=== PATIENT | female | born 1975 | race Hispanic/Latino ===

== ENCOUNTER 2019-03-24 12:49 | Inpatient (IN) | payer OTHER ==
[~2019-03-24] VITALS: Ht 165.1 cm; Wt 199.1 kg
[2019-03-24 15:43] LABS: BASOPHILS % (AUTO) 0.5 % (0.0-5.0); EOSINOPHILS % (AUTO) 0.3 % (0.0-8.0); HEMATOCRIT 30.3 % (36-48); LYMPHOCYTES % (AUTO) 10.3 % (21.0-51.0); MEAN CORPUSCULAR HEMOGLOBIN 29.9 pg (27.0-33.0); MEAN CORPUSCULAR HGB CONC 33.6 g/dL (32.0-36.0); MEAN CORPUSCULAR VOLUME 89.1 fL (79-99); MONOCYTES % (AUTO) 11.5 % (3.0-13.0); NEUTROPHILS % (AUTO) 77.4 % (40.0-77.0); NUCLEATED RED BLOOD CELLS 0.1 % (0.0-0.19); PLATELET COUNT (AUTO) 289 K/uL (130-400); RED CELL DISTRIBUTION WIDTH 15.2 % (11.0-15.5); WHITE BLOOD COUNT (AUTO) 6.4 K/uL (4.8-10.8)
[2019-03-24 15:45] LABS: ABG BASE EXCESS 3.3 mmol/L (-2.0-3.0); ABG HCO3 26.1 mmol/L (21.0-28.0); ABG OXYGEN SATURATION 98.7 % (95.0-99.0); ABG PCO2 32 mmHg (32-45)
[2019-03-24 16:13] LABS: B-TYPE NATRIURETIC PEPTIDE 22 pg/mL (0-100)
[2019-03-24] MEDS ORDERED: CLINDAMYCIN 600 MG/D5% WATER 50 ML IV ONE (16:54)
[2019-03-24] MEDS ORDERED: GUAIFENESIN-DM 200/20 MG 10 ML PO PRN (19:00)
[2019-03-24] MEDS ORDERED: LACTULOSE 20 GM/30 ML UDCUP PO PRN (19:00)
[2019-03-24] MEDS ORDERED: NITROGLYCERIN 0.4 MG SL TAB SL PRN (19:00)
[2019-03-24] MEDS ORDERED: ONDANSETRON HCL 4 MG/2 ML VIAL IV PRN (19:00)
[2019-03-24] MEDS ORDERED: ACETAMINOPHEN 325 MG TAB PO PRN ×2 (19:00)
[2019-03-24] MEDS ORDERED: POTASSIUM CHLORIDE 20 MEQ ERTAB PO SCH (20:00)
[2019-03-24 21:45] VITALS: BP 116/76
--- NOTE | 2019-03-24 21:45 | NUR ---
Admission note: Pt. came in via stretcher and was transferred in bed safely with 6 persons. Alert and fully responsive. VS checked and recorded. Assessment done. ( See flow chart ) Plan of care initiated. Seen and examined by Hospitalist. Orders carried out. Dressing at the back changed and reinforced as it was stained with her stool. Oriented to room and use of call light. Policies and procedures explained. Family and patient verbalized understanding. Kept monitored for any unusual changes. Needs attended and cared for. Reported accordingly to AM shift.
[2019-03-24] MEDS: FAMOTIDINE 20MG TAB 20 MG TAB PO SCH (21:48)
[2019-03-24] MEDS: HYDROCODONE/ACETAMINOPHEN 5/325 MG TAB PO PRN (21:49)
[2019-03-24] MEDS: SODIUM CHLORIDE 0.9% 1000ML 1,000 ML IV SCH (22:10)
[2019-03-24] MEDS: IPRATROPIUM/ALBUTEROL SULFATE 3 ML SOLUTION IH SCH (22:12)
[2019-03-25] VITALS: BP 116/57
[2019-03-25 00:12] LABS: INR 1.07 (0.85-1.15); PARTIAL THROMBOPLASTIN TIME 26.8 SEC (26.3-35.5); PROTHROMBIN TIME 11.2 SEC (9.6-11.6)
[2019-03-25 00:19] LABS: BILIRUBIN,TOTAL 0.6 mg/dL (0.2-1.0); CREATININE 0.9 mg/dL (0.5-1.5); POTASSIUM 3.1 mmol/L (3.5-5.1); TOTAL PROTEIN, SERUM 6.9 g/dL (6.0-8.3)
[2019-03-25] MEDS ORDERED: LIDOCAINE HCL-MPF 1% 2ML VIAL IVP PRN (00:45)
[2019-03-25] MEDS ORDERED: POTASSIUM CHLORIDE 10% ELIXIR 20 MEQ/15 ML UDCUP PO PRN (00:45)
[2019-03-25] MEDS ORDERED: FUROSEMIDE 10 MG/ML 4ML VIAL IV ONE (00:45)
[2019-03-25] MEDS ORDERED: FUROSEMIDE 10 MG/ML 4ML VIAL ONE (00:54)
--- NOTE | 2019-03-25 01:00 | NUR ---
Gomez Insertion: Procedure for FC insertion explained. Pt agreeable and verbalize understanding. # 18 Fr. Gomez inserted using aseptic technique, balloon inflated with 10cc SW , dark yellow colored returned. Patient tolerated the procedure well. Urine obtained for UA and Culture and sensitivity and sent to lab for MD orders. No untoward incident happened.
[2019-03-25] MEDS: IPRATROPIUM/ALBUTEROL SULFATE 3 ML SOLUTION IH SCH ×6 (01:19→21:30)
[2019-03-25 01:22] LABS: APPEARANCE,URINE Cloudy (CLEAR); BILIRUBIN,URINE Negative (NEGATIVE); COLOR,URINE Yellow (YELLOW); GLUCOSE, URINE (UA) Negative (NEGATIVE); KETONES,URINE Negative (NEGATIVE); LEUKOCYTE ESTERASE ,URINE Trace (NEGATIVE); NITRATE,URINE Negative (NEGATIVE); OCCULT BLOOD,URINE Small (NEGATIVE); PH,URINE 5.5 (5.0-8.0); PROTEIN,URINE POS 1+ mg/dL (NEGATIVE); UROBILINOGEN,URINE 0.2 mg/dL (0.2-1.0)
[2019-03-25 01:31] LABS: BACTERIA,URINE None Seen /HPF (None Seen); CALCIUM OXALATE CRYSTALS,UR Moderate /LPF (None Seen); SQUAMOUS EPITHELIAL CELL,UR Few /HPF (0-2); YEAST,URINE BUDDING Few /HPF (None Seen)
[2019-03-25] MEDS ORDERED: LEVOFLOXACIN 750 MG/D5W 150 ML 150 ML ONE (03:10)
[2019-03-25 04:00] VITALS: BP 103/59
[2019-03-25 04:52] LABS: BASOPHILS % (AUTO) 0.3 % (0.0-5.0); EOSINOPHILS % (AUTO) 0.9 % (0.0-8.0); HEMATOCRIT 26.4 % (36-48); LYMPHOCYTES % (AUTO) 14.3 % (21.0-51.0); MEAN CORPUSCULAR HEMOGLOBIN 29.6 pg (27.0-33.0); MEAN CORPUSCULAR VOLUME 89.6 fL (79-99); MONOCYTES % (AUTO) 11.4 % (3.0-13.0); NEUTROPHILS % (AUTO) 73.1 % (40.0-77.0); PLATELET COUNT (AUTO) 275 K/uL (130-400); RED BLOOD CELL COUNT(AUTO) 2.94 MIL/uL (4.00-5.50); RED CELL DISTRIBUTION WIDTH 15.2 % (11.0-15.5)
[2019-03-25] MEDS: SODIUM CHLORIDE 0.9% 1000ML 1,000 ML IV SCH ×3 (05:00→21:13)
[2019-03-25 05:10] LABS: POTASSIUM 3.2 mmol/L (3.5-5.1)
[2019-03-25 05:11] LABS: ALBUMIN 1.9 g/dL (3.5-5.0); BILIRUBIN,TOTAL 0.5 mg/dL (0.2-1.0); CREATININE 0.9 mg/dL (0.5-1.5); MAGNESIUM 1.8 mg/dL (1.80-2.40); TOTAL PROTEIN, SERUM 6.5 g/dL (6.0-8.3)
[2019-03-25] MEDS ORDERED: SODIUM HYPOCHLORITE 0.25% [HALF STRENGTH] 473 ML TOPICAL SOLN TP SCH (06:15)
[2019-03-25 08:00] VITALS: BP 110/58
[2019-03-25] MEDS ORDERED: PHARMACY COMMUNICATION MISC SCH (08:00)
[2019-03-25] MEDS: ENOXAPARIN SODIUM 40 MG/0.4 ML SYRINGE SQ SCH (08:50)
[2019-03-25] MEDS: FAMOTIDINE 20MG TAB 20 MG TAB PO SCH ×2 (08:50→21:12)
[2019-03-25] MEDS: HYDROCODONE/ACETAMINOPHEN 5/325 MG TAB PO PRN ×2 (08:51→23:54)
[2019-03-25] MEDS ORDERED: LEVOFLOXACIN 750 MG/D5W 150 ML 150 ML IV SCH (09:00)
[2019-03-25 12:00] VITALS: BP 91/54
[2019-03-25 16:00] VITALS: BP 104/54
--- NOTE | 2019-03-25 16:41 | NUR ---
D/C PLAN CM spoke to pt regarding d/c planning. Pt lives with spouse. States spouse and mother assist in care as needed. Pt has hospital bed, w/c, bsc, and leticia lift. States she attends o/p wound care with Dr. Siegel. Reports MD has recommended pt transfer to [facility] at d/c. CM explained that placement requires insurance authorization. CM obtained consent for referral. CM pending d/c planning order. CM to fax referral once obtained and f/u. Addendum: 03/25/19 at 1704 by GREGORY SONG Amended: Links added.
--- NOTE | 2019-03-25 17:07 | NUR ---
JULIO castillo extra note 03/25/19 1) Hx: Pt said that she has been non-ambulatory since approx Nov 2018 (admitted to hospital with pneumonia; "seated" for approx 1.5 months). 2) Prior to hospital admission Nov 2018, Pt said she was ambulatory. 3) Prior to current hospitalization ,pt said her family have been assisting patient with transfers, using a Lift (manual Paul-type lift). 4). Observation: (+) wound/open skin area at L lower leg. (+) hardened skin at L lower leg. 5) (+) pitting edema L lower leg. 6) Transfer and gait tests NT today, due to obesity + signficant weakness + wounds + pain + level of dependence with bed mobility. Addendum: 03/25/19 at 1712 by JOYCE ESCOTO PT Amended: Links added.
--- NOTE | 2019-03-25 17:14 | NUR ---
PT Rx extra note 03/25/19 1) Exercises: a) assisted abdominal crunches x 20 reps; b) manual resistance ex BUE; c) passive ex BLE; 4) active-assistive ex BLE. Addendum: 03/25/19 at 1715 by JOYCE ESCOTO PT Amended: Links added.
--- NOTE | 2019-03-25 19:00 | NUR ---
wc pt educated on the wound care to the lower extremities. cleansed with NS, pat dry. Betadine cast applied and covered with 4x4, then kerlix the extremities. pt tolerated procedure well. denies any pain to area. will endorse the continuation of wound care to the evening shift
[2019-03-25 19:42] VITALS: BP 105/61
[2019-03-26] VITALS (8 sets, daily range): BP systolic 80–112; BP diastolic 44–67
[2019-03-26] MEDS: IPRATROPIUM/ALBUTEROL SULFATE 3 ML SOLUTION IH SCH ×6 (01:05→22:02)
[2019-03-26] MEDS: LEVOFLOXACIN 750 MG/D5W 150 ML 150 ML IV SCH ×2 (02:53→09:47)
[2019-03-26] MEDS: SODIUM CHLORIDE 0.9% 1000ML 1,000 ML IV SCH ×4 (03:33→20:29)
[2019-03-26] MEDS: HYDROCODONE/ACETAMINOPHEN 5/325 MG TAB PO PRN ×3 (04:31→20:30)
--- NOTE | 2019-03-26 04:47 | NUR ---
Dressing change Dressing to right buttocks done at this time. Removed old dressing which had moderate amount of serosanguinous drainage, cleansed with NS, packed wound with kerlix impregnated with dakins solution and covered with abdominal pads. Dressing to mid back done removed old dressing and packing that was in place. Cleansed site with NS and packed with 1/4 inch strip gauze impregnated with dakins solution. Wound to right buttocks noted to have foul odor. Patient tolerated dressing changes well.
[2019-03-26 06:23] LABS: CREATININE 0.8 mg/dL (0.5-1.5); MAGNESIUM 1.7 mg/dL (1.80-2.40); PHOSPHORUS 1.9 mg/dL (2.5-4.9); POTASSIUM 3.2 mmol/L (3.5-5.1)
[2019-03-26 06:27] LABS: % IRON SATURATION 37.5 % (22-44)
--- NOTE | 2019-03-26 06:38 | NUR ---
Critical Calcium Received call from lab regarding Calcium of 12.3, AJ BUFFING WHEEL PRESSER for hospitalist on floor and was informed of result.
[2019-03-26] MEDS: FAMOTIDINE 20MG TAB 20 MG TAB PO SCH ×2 (09:46→20:30)
[2019-03-26] MEDS: ENOXAPARIN SODIUM 40 MG/0.4 ML SYRINGE SQ SCH (09:47)
[2019-03-26] MEDS ORDERED: POTASSIUM PHOS 15 mMOL+NS250ML 250 ML IV PRN (13:15)
[2019-03-26] MEDS ORDERED: MAGNESIUM SULFATE 1 GM in SODIUM CHLORIDE 0.9% 50 ML IV PRN (13:15)
--- NOTE | 2019-03-26 16:00 | NUR ---
DRESSING TO RIGHT BUTTOCKS CLEANED WITH NORMAL SALINE AND PACKED WOUND WITH IMPREGNATED WITH DAKINS SOLUTION, COVERED WITH ABD AND SECURED WITH TAPE. PATIENT TOLERATED PROCEDURE WELL. CLEANED BILATERAL HEELS WITH NORMAL SALINE AND APPLIED BETADINE CAST. COVERED WITH KERLIX AND SECURED WITH TAPE. CLEANED ABD. FOLDS WITH NORMAL SALINE AND DRIED WITH 4X4 . PRISM NOT AVAILABLE
[2019-03-26] MEDS ORDERED: LACT1CAP69 PO (16:43)
[2019-03-26] MEDS ORDERED: ASPI-555 PO (16:43)
[2019-03-26] MEDS ORDERED: FAMO20TA8 PO (16:43)
[2019-03-26] MEDS ORDERED: POTA10CA44 PO (16:43)
[2019-03-26] MEDS ORDERED: FURO40TA5 PO (16:43)
[2019-03-26] MEDS: MAGNESIUM 2GM PREMIX 50ML 50 ML IV PRN (17:12)
--- NOTE | 2019-03-26 17:43 | NUR ---
PT extra note 03/26/19: Exercises: a) resistive ex to B hip abductors; b) "leg stomping", with manual resistance; c) assisted "abs crunch", 20 reps; d) sitting balance/tolerance ( long-sitting posture, feet on bed). Addendum: 03/26/19 at 1745 by JOYCE ESCOTO PT Amended: Links added.
--- NOTE | 2019-03-26 20:30 | NUR ---
PAIN Pt medicated with Hydrocodone for pain to ulcer to buttock.Dressing was changed per Juan Coleman.
--- NOTE | 2019-03-26 21:30 | NUR ---
MED EFFECT Pt denies pain,resting on bariatric bed.
[2019-03-27] VITALS (7 sets, daily range): BP systolic 86–107; BP diastolic 48–99
[2019-03-27] MEDS: IPRATROPIUM/ALBUTEROL SULFATE 3 ML SOLUTION IH SCH ×5 (02:34→23:47)
[2019-03-27] MEDS: HYDROCODONE/ACETAMINOPHEN 5/325 MG TAB PO PRN ×2 (05:34→19:51)
[2019-03-27] MEDS: SODIUM CHLORIDE 0.9% 1000ML 1,000 ML IV SCH ×3 (05:38→19:51)
[2019-03-27 05:41] LABS: HEMATOCRIT 26.6 % (36-48); LYMPHOCYTES % (AUTO) 10.5 % (21.0-51.0); MEAN CORPUSCULAR HEMOGLOBIN 29.9 pg (27.0-33.0); MEAN CORPUSCULAR HGB CONC 33.1 g/dL (32.0-36.0); MEAN CORPUSCULAR VOLUME 90.6 fL (79-99); MONOCYTES % (AUTO) 10.4 % (3.0-13.0); PLATELET COUNT (AUTO) 260 K/uL (130-400); RED BLOOD CELL COUNT(AUTO) 2.93 MIL/uL (4.00-5.50); RED CELL DISTRIBUTION WIDTH 15.5 % (11.0-15.5); WHITE BLOOD COUNT (AUTO) 7.4 K/uL (4.8-10.8)
[2019-03-27 05:42] LABS: BASOPHILS % (AUTO) 0.2 % (0.0-5.0); EOSINOPHILS % (AUTO) 0.9 % (0.0-8.0)
[2019-03-27 05:59] LABS: CREATININE 0.8 mg/dL (0.5-1.5); MAGNESIUM 1.9 mg/dL (1.80-2.40); POTASSIUM 3.3 mmol/L (3.5-5.1)
[2019-03-27] MEDS: POTASSIUM CHLORIDE 20 MEQ ERTAB PO PRN ×3 (06:31→17:42)
[2019-03-27 08:31] LABS: INR 1.03 (0.85-1.15); PROTHROMBIN TIME 10.8 SEC (9.6-11.6)
[2019-03-27] MEDS: LEVOFLOXACIN 750 MG/D5W 150 ML 150 ML IV SCH (09:55)
[2019-03-27] MEDS: FAMOTIDINE 20MG TAB 20 MG TAB PO SCH ×2 (09:56→19:50)
--- NOTE | 2019-03-27 14:25 | NUR ---
[facility] follow up Accompanied Dr. Jimmy Siegel to follow up on patient. All wounds re-assessed by Dr. Siegel. Surgical consult has been recommended for debridement of right buttock ulcer; ideally wound vac to be placed at time of surgical debridement. Wound care performed as ordered to all sites except abdomen (to be done tomorrow) and right lower leg (to be done when medihoney obtained). Patient is on bariatric air bed.
[2019-03-27] MEDS ORDERED: HONEY 1 APPL/ML TUBE TP SCH (14:30)
--- NOTE | 2019-03-27 16:19 | NUR ---
RD Notification Pt with multiple decubitus ulcers (Bilateral Heel DTI, R. Buttock, Mid-Lower back), Morbid Obesity (BMI 68.6). Pt reports Nausea with eating certain foods, poor PO. RN notified. RD to add tolerable foods to dietary. Does not tolerate Ensure shake. RD to recommend Sean BID/Vitamin C/Zinc/30mL ProMod TID for wound healing support and poor PO. 2+ Pitting edema noted. RD to continue to monitor. Please notify RD as additional nutrition concerns arise. Thank you. Addendum: 03/27/19 at [address] Amended: Links added.
[2019-03-27] MEDS: ENOXAPARIN SODIUM 40 MG/0.4 ML SYRINGE SQ SCH (17:43)
[2019-03-28] VITALS (27 sets, daily range): BP systolic 68–148; BP diastolic 16–79
--- NOTE | 2019-03-28 03:17 | NUR ---
NPO Pt remains Npo after midnight for wound debridement in Or.Pt remains on bariatric air bed for wound management.Gomez care per staff.Picc line to left upper arm both ports patent flushing well,brisk blood return.
[2019-03-28] MEDS: SODIUM CHLORIDE 0.9% 1000ML 1,000 ML IV SCH ×3 (04:49→18:17)
--- NOTE | 2019-03-28 05:00 | NUR ---
BATH Pt bathed with Chg wipes per staff.
[2019-03-28] MEDS: HYDROCODONE/ACETAMINOPHEN 5/325 MG TAB PO PRN (05:17)
[2019-03-28 05:20] LABS: BASOPHILS % (AUTO) 0.2 % (0.0-5.0); EOSINOPHILS % (AUTO) 0.6 % (0.0-8.0); HEMATOCRIT 26.5 % (36-48); LYMPHOCYTES % (AUTO) 10.5 % (21.0-51.0); MEAN CORPUSCULAR HEMOGLOBIN 30.1 pg (27.0-33.0); MEAN CORPUSCULAR HGB CONC 33.1 g/dL (32.0-36.0); MEAN CORPUSCULAR VOLUME 90.9 fL (79-99); MONOCYTES % (AUTO) 10.1 % (3.0-13.0); NEUTROPHILS % (AUTO) 78.6 % (40.0-77.0); PLATELET COUNT (AUTO) 203 K/uL (130-400); RED BLOOD CELL COUNT(AUTO) 2.91 MIL/uL (4.00-5.50); RED CELL DISTRIBUTION WIDTH 15.3 % (11.0-15.5); WHITE BLOOD COUNT (AUTO) 7.4 K/uL (4.8-10.8)
[2019-03-28 05:33] LABS: CREATININE 0.8 mg/dL (0.5-1.5); POTASSIUM 3.8 mmol/L (3.5-5.1)
[2019-03-28] MEDS: IPRATROPIUM/ALBUTEROL SULFATE 3 ML SOLUTION IH SCH ×4 (06:44→23:43)
[2019-03-28] MEDS: FAMOTIDINE 20MG TAB 20 MG TAB PO SCH ×2 (09:00→21:00)
[2019-03-28] MEDS: CINACALCET HCL 30 MG TAB PO SCH (09:00)
[2019-03-28] MEDS: ENOXAPARIN SODIUM 40 MG/0.4 ML SYRINGE SQ SCH (09:00)
[2019-03-28] MEDS: LEVOFLOXACIN 750 MG/D5W 150 ML 150 ML IV SCH (09:15)
--- NOTE | 2019-03-28 11:45 | NUR ---
CM note: Wadea pending ins auth and acceptance Spoke to Robyn Schmitt, received order and clinicals. Will come eval pt today. Pt pending ins auth and acceptance. Primary nurse aware. CM to cont to follow up.
--- NOTE | 2019-03-28 14:20 | NUR ---
PATIENT TRANSFERRED TO HOLDING AREA FOR PROCEDURE BY DR. LEIVA. PATIENT SCHEDULED FOR DECUBITUS ULCER DEBRIDEMENT WITH POSSIBLE WOUND VAC PLACEMENT.
[2019-03-28] MEDS ORDERED: FENTANYL CITRATE PF 50 MCG/1 ML 2ML VIAL ONE (14:44)
[2019-03-28] MEDS ORDERED: LIDOCAINE PF 2% 5ML ABBOJECT ONE (14:44)
[2019-03-28] MEDS ORDERED: MIDAZOLAM HCL 1 MG/ML 2ML VIAL ONE (14:44)
[2019-03-28] MEDS ORDERED: PROPOFOL 10 MG/ML 20ML VIAL IV ONE (14:44)
[2019-03-28] MEDS ORDERED: ONDANSETRON HCL 4 MG/2 ML VIAL ONE (14:44)
[2019-03-28] MEDS ORDERED: DEXAMETHASONE SOD PHOSPHATE 10MG/ML 1ML VIAL ONE (14:44)
[2019-03-28] MEDS ORDERED: EPHEDRINE SULFATE 50 MG/ML AMPULE ONE ×2 (15:24→16:42)
[2019-03-28] MEDS ORDERED: ROCURONIUM 10MG/1ML SYR 10 MG/ML ML ONE (16:02)
[2019-03-28 16:58] LABS: ABG BASE EXCESS -4.6 mmol/L (-2.0-3.0); ABG OXYGEN SATURATION 99.4 % (95.0-99.0); ABG PCO2 55 mmHg (32-45)
[2019-03-28] MEDS ORDERED: MORPHINE SULFATE 4 MG/1ML SYG IV PRN (17:00)
[2019-03-28] MEDS ORDERED: PROPOFOL 1000 MG/100 ML 100 ML IV ONE (17:36)
[2019-03-28] MEDS ORDERED: PHENYLEPHRINE HCL 10 MG/ML 1ML VIAL IV ONE (17:45)
[2019-03-28] MEDS: PHENYLEPHRINE HCL 50 MG in SODIUM CHLORIDE 0.9% 250 ML IV PRN ×2 (18:14→23:22)
[2019-03-28 18:25] LABS: ABG BASE EXCESS -4.1 mmol/L (-2.0-3.0); ABG HCO3 19.8 mmol/L (21.0-28.0); ABG OXYGEN SATURATION 99.5 % (95.0-99.0); ABG PCO2 33 mmHg (32-45)
--- NOTE | 2019-03-28 18:35 | NUR ---
REPORT GIVEN TO JAMES WELLER (CCU). PATIENT TRANSFERRED FROM PACU TO ROOM 219.
[2019-03-28] MEDS ORDERED: FAMOTIDINE/PF 20 MG/2 ML VIAL IV SCH (21:00)
[2019-03-28] MEDS: PROPOFOL 1000 MG/100 ML 100 ML IV PRN (21:13)
--- NOTE | 2019-03-28 22:25 | NUR ---
STATUS ANESTHESIA PROVIDER CALLED TO CHECK UP ON PATIENT. UPDATED ON PATIENT CONDITION. NO NEW ORDERS RECEIVED. VERIFIED THAT PULMONARY CONSULT WAS NOT CONSULTED FOR PATIENT. Addendum: 03/29/19 at 0155 by JAN MORRIS RN RN OFFICE WORKFORCE PLANNER
[2019-03-29] VITALS (45 sets, daily range): BP systolic 94–162; BP diastolic 31–107
[2019-03-29] MEDS: SODIUM CHLORIDE 0.9% 1000ML 1,000 ML IV SCH ×5 (01:11→22:00)
[2019-03-29] MEDS: PROPOFOL 1000 MG/100 ML 100 ML IV PRN ×3 (01:37→05:52)
--- NOTE | 2019-03-29 01:55 | NUR ---
WOUND VAC WOUND VAC CANISTER CHANGED
[2019-03-29 04:28] LABS: CREATININE 0.7 mg/dL (0.5-1.5); POTASSIUM 3.9 mmol/L (3.5-5.1)
[2019-03-29 04:32] LABS: PHOSPHORUS 1.1 mg/dL (2.5-4.9)
[2019-03-29] MEDS: PHENYLEPHRINE HCL 50 MG in SODIUM CHLORIDE 0.9% 250 ML IV PRN (05:53)
[2019-03-29] MEDS: IPRATROPIUM/ALBUTEROL SULFATE 3 ML SOLUTION IH SCH ×4 (06:22→23:11)
[2019-03-29 07:52] LABS: ABG BASE EXCESS -4.7 mmol/L (-2.0-3.0); ABG HCO3 18.9 mmol/L (21.0-28.0); ABG OXYGEN SATURATION 98.9 % (95.0-99.0); ABG PCO2 31 mmHg (32-45)
[2019-03-29] MEDS: FAMOTIDINE/PF 20 MG/2 ML VIAL IV SCH ×2 (08:38→22:00)
[2019-03-29] MEDS: LEVOFLOXACIN 750 MG/D5W 150 ML 150 ML IV SCH (08:38)
[2019-03-29] MEDS: ENOXAPARIN SODIUM 40 MG/0.4 ML SYRINGE SQ SCH (08:39)
[2019-03-29] MEDS: CINACALCET HCL 30 MG TAB PO SCH (08:39)
[2019-03-29] MEDS ORDERED: NEUTRA-PHOS PACKET 1 EACH PO SCH (09:15)
[2019-03-29] MEDS: HYDROCODONE/ACETAMINOPHEN 5/325 MG TAB PO PRN ×2 (12:11→22:01)
--- NOTE | 2019-03-29 15:00 | NUR ---
ASSESSED PTS LAUREL 5 ITALIAN 2 LUMEN PICC LINE, NOTICED UPON ASSESSED 2CM OUT AND PICC LINE BEING KINKED. STRAIGHTENED LINE. PER PREVIOUS DOCUMENTATION 0 CM OUT. DID STERIL DRESSING CHANGE AND FLUSHED WITHOUT DIFFICULTY. REPORTED FINDING TO VERN RN PT PRIMARY NURSE. SUGGESTED FOR HER TO CALL PRIMARY MD TO SEE IF HE WANTS AN CHEST XRAY TO VERIFY PLACEMENT. CHEST XRAY ORDERED.
[2019-03-29] MEDS ORDERED: HYDROMORPHONE 4MG/ML 1ML VIAL IVP PRN (15:45)
[2019-03-29] MEDS: HEPARIN SODIUM 5000UNIT/ML 1ML VIAL SQ SCH (15:45)
[2019-03-29] MEDS: NEUTRA-PHOS PACKET 1 EACH PO SCH (22:03)
[2019-03-30] VITALS (26 sets, daily range): BP systolic 67–138; BP diastolic 40–73
[2019-03-30] MEDS: HEPARIN SODIUM 5000UNIT/ML 1ML VIAL SQ SCH ×2 (00:46→09:22)
[2019-03-30 05:05] LABS: HEMATOCRIT 23.8 % (36-48); MEAN CORPUSCULAR HEMOGLOBIN 30.5 pg (27.0-33.0); MEAN CORPUSCULAR HGB CONC 33.3 g/dL (32.0-36.0); MEAN CORPUSCULAR VOLUME 91.6 fL (79-99); PLATELET COUNT (AUTO) 128 K/uL (130-400); RED CELL DISTRIBUTION WIDTH 15.8 % (11.0-15.5); WHITE BLOOD COUNT (AUTO) 9.7 K/uL (4.8-10.8)
[2019-03-30 05:19] LABS: INR 1.09 (0.85-1.15); PARTIAL THROMBOPLASTIN TIME 27.8 SEC (26.3-35.5); PROTHROMBIN TIME 11.4 SEC (9.6-11.6)
[2019-03-30 05:42] LABS: ALANINE AMINOTRANSFERASE 11 U/L (12-78); ALBUMIN 1.3 g/dL (3.5-5.0); ASPARTATE AMINOTRANSFERASE 14 U/L (10-37); BILIRUBIN,TOTAL 0.3 mg/dL (0.2-1.0); CARBON DIOXIDE 19 mmol/L (21-32); CHLORIDE 110 mmol/L (101-111); CREATINE KINASE, TOTAL 17 U/L (21-232); CREATININE 0.7 mg/dL (0.5-1.5); GLOMERULAR FILTR. RATE CALC 98 mL/min (>60); GLUCOSE,RANDOM 85 mg/dL (70-105); MYOGLOBIN 32 ng/mL (10-92); PHOSPHORUS 2.1 mg/dL (2.5-4.9); POTASSIUM 4.1 mmol/L (3.5-5.1); SODIUM SERUM 138 mmol/L (136-145); TROPONIN I < 0.04 ng/mL (0.00-0.06); UREA NITROGEN, BLOOD 19 mg/dL (7-18)
[2019-03-30 05:45] LABS: ABG BASE EXCESS -5.4 mmol/L (-2.0-3.0); ABG OXYGEN SATURATION 98.2 % (95.0-99.0); ABG PCO2 39 mmHg (32-45)
[2019-03-30] MEDS: SODIUM CHLORIDE 0.9% 1000ML 1,000 ML IV SCH (05:46)
[2019-03-30] MEDS: HYDROCODONE/ACETAMINOPHEN 5/325 MG TAB PO PRN (05:46)
[2019-03-30] MEDS: IPRATROPIUM/ALBUTEROL SULFATE 3 ML SOLUTION IH SCH ×4 (06:47→23:57)
[2019-03-30] MEDS: MAGNESIUM 2GM PREMIX 50ML 50 ML IV PRN (06:51)
[2019-03-30] MEDS: LEVOFLOXACIN 750 MG/D5W 150 ML 150 ML IV SCH (09:13)
[2019-03-30] MEDS: FAMOTIDINE/PF 20 MG/2 ML VIAL IV SCH ×2 (09:15→20:33)
[2019-03-30] MEDS: NEUTRA-PHOS PACKET 1 EACH PO SCH ×2 (09:19→20:48)
[2019-03-30] MEDS: CINACALCET HCL 30 MG TAB PO SCH (09:19)
--- NOTE | 2019-03-30 09:25 | NUR ---
Patient's mother came out of room and requested for assistance. The patient was found with an active seizure manifested with bilateral facial twitching. Dr. Molina in to see patient. Rapid response was called. Patient placed on BiPAP. Given ativan 2 mg iv given. Patient with hypotension post ativan dose. NS 1 liter bolus ordered by Dr. Molina.
[2019-03-30] MEDS ORDERED: LORAZEPAM 2 MG/ML 1 ML VIAL ONE (09:29)
[2019-03-30] MEDS ORDERED: PHENYTOIN SODIUM 50MG/ML 2ML 0 MG in SODIUM CHLORIDE 0.9% 50 ML IV SCH (09:30)
[2019-03-30] MEDS ORDERED: LORAZEPAM 2 MG/ML 1 ML VIAL IM PRN (09:30)
[2019-03-30] MEDS ORDERED: LORAZEPAM 2 MG/ML 1 ML VIAL IVP ONE (09:30)
[2019-03-30 09:35] LABS: ABG OXYGEN SATURATION 97.6 % (95.0-99.0); ABG PCO2 56 mmHg (32-45)
[2019-03-30] MEDS ORDERED: SODIUM CHLORIDE 0.9% 1000ML 1,000 ML IV ONE (09:45)
[2019-03-30 10:24] LABS: ABG HCO3 19.2 mmol/L (21.0-28.0); ABG OXYGEN SATURATION 98.9 % (95.0-99.0); ABG PCO2 41 mmHg (32-45)
[2019-03-30] MEDS ORDERED: FOSPHENYTOIN SODIUM 100 MG/2 ML VIAL IV SCH (10:30)
[2019-03-30 10:40] LABS: BASOPHILS % (AUTO) 0.2 % (0.0-5.0); EOSINOPHILS % (AUTO) 0.8 % (0.0-8.0); HEMATOCRIT 23.5 % (36-48); LYMPHOCYTES % (AUTO) 9.7 % (21.0-51.0); MEAN CORPUSCULAR HEMOGLOBIN 30.2 pg (27.0-33.0); MEAN CORPUSCULAR HGB CONC 32.9 g/dL (32.0-36.0); MEAN CORPUSCULAR VOLUME 91.9 fL (79-99); MONOCYTES % (AUTO) 5.8 % (3.0-13.0); NEUTROPHILS % (AUTO) 83.5 % (40.0-77.0); NUCLEATED RED BLOOD CELLS 0.1 % (0.0-0.19); PLATELET COUNT (AUTO) 117 K/uL (130-400); RED BLOOD CELL COUNT(AUTO) 2.56 MIL/uL (4.00-5.50); RED CELL DISTRIBUTION WIDTH 15.9 % (11.0-15.5); WHITE BLOOD COUNT (AUTO) 8.8 K/uL (4.8-10.8)
[2019-03-30] MEDS ORDERED: FOSPHENYTOIN SODIUM 1,000 MG in SODIUM CHLORIDE 0.9% 50 ML IJ SCH (10:45)
[2019-03-30] MEDS ORDERED: COMPOUND IV MISC 1 EACH IVSOLN MISC PRN (10:45)
--- NOTE | 2019-03-30 11:07 | NUR ---
10:50- PER JAMES CALI - to disregard Physical therapy order today due to seizure this AM. Addendum: 03/30/19 at 1109 by POONAM CASPER, PT PT Amended: Links added.
[2019-03-30 11:08] LABS: ALANINE AMINOTRANSFERASE 15 U/L (12-78); ALBUMIN 1.4 g/dL (3.5-5.0); ASPARTATE AMINOTRANSFERASE 13 U/L (10-37); BILIRUBIN,TOTAL 0.4 mg/dL (0.2-1.0); CARBON DIOXIDE 22 mmol/L (21-32); CHLORIDE 107 mmol/L (101-111); CREATINE KINASE, TOTAL 13 U/L (21-232); CREATININE 0.8 mg/dL (0.5-1.5); GLOMERULAR FILTR. RATE CALC 84 mL/min (>60); GLUCOSE,RANDOM 82 mg/dL (70-105); MYOGLOBIN 46 ng/mL (10-92); PHOSPHORUS 2.3 mg/dL (2.5-4.9); POTASSIUM 3.4 mmol/L (3.5-5.1); SODIUM SERUM 137 mmol/L (136-145); TOTAL PROTEIN, SERUM 5.2 g/dL (6.0-8.3); TROPONIN I < 0.04 ng/mL (0.00-0.06); UREA NITROGEN, BLOOD 19 mg/dL (7-18)
--- NOTE | 2019-03-30 11:49 | NUR ---
Dr. Maher in to see patient. Spoke to family regarding bleed in left occipital parietl asf Addendum: 03/30/19 at 1152 by VIRAJ MIMS RN RN Dr. Maher in to see patient. Spoke to family regarding bleed in left occipital parietal region. Dr. Maher spoke with Dr. Uli Molina and Henrique Vora [facility]. Awaiting official report.
[2019-03-30] MEDS: LEVETIRACETAM 1,000 MG in SODIUM CHLORIDE 0.9% 100 ML IV SCH ×2 (12:56→20:35)
[2019-03-30] MEDS ORDERED: VANCOMYCIN PROTOCOL PER PHARMACY IV SCH (13:15)
[2019-03-30] MEDS ORDERED: COMPOUND IV REFRIGERATED 1 EACH IVSOLN MISC PRN (13:30)
[2019-03-30] MEDS: POTASSIUM CHLORIDE 20MEQ/100ML 100 ML IV PRN (13:43)
[2019-03-30] MEDS: FUROSEMIDE 10 MG/ML 2ML VIAL IV SCH ×2 (13:43→20:34)
[2019-03-30] MEDS ORDERED: LEVETIRACETAM 1,000 MG in SODIUM CHLORIDE 0.9% 100 ML IV SCH (14:00)
--- NOTE | 2019-03-30 14:03 | NUR ---
Dr. Granados notified that MRI of brain unable to be done due to patient unable to fit in scanner. CT scan of brain ordered for am. Dr. Dukes paged to notify.
[2019-03-30] MEDS: VANCOMYCIN 2 GM in SODIUM CHLORIDE 0.9% 500ML 500 ML IV SCH ×2 (15:06→20:48)
[2019-03-30] MEDS: CEFTAZIDIME PENTAHYDRATE 1 GM/VIAL IVP SCH (20:34)
[2019-03-30] MEDS: FOSPHENYTOIN SODIUM 100 MG/2 ML VIAL IV SCH (20:46)
[2019-03-31] VITALS (34 sets, daily range): BP systolic 90–130; BP diastolic 42–76
[2019-03-31] MEDS: CEFTAZIDIME PENTAHYDRATE 1 GM/VIAL IVP SCH ×3 (03:49→19:26)
[2019-03-31] MEDS: LEVETIRACETAM 1,000 MG in SODIUM CHLORIDE 0.9% 100 ML IV SCH ×3 (03:49→18:30)
[2019-03-31] MEDS: FOSPHENYTOIN SODIUM 100 MG/2 ML VIAL IV SCH ×3 (03:49→19:26)
[2019-03-31 04:16] LABS: BASOPHILS % (AUTO) 0.4 % (0.0-5.0); EOSINOPHILS % (AUTO) 1.1 % (0.0-8.0); HEMATOCRIT 23.3 % (36-48); LYMPHOCYTES % (AUTO) 8.2 % (21.0-51.0); MEAN CORPUSCULAR HEMOGLOBIN 29.1 pg (27.0-33.0); MEAN CORPUSCULAR VOLUME 91.1 fL (79-99); MONOCYTES % (AUTO) 4.8 % (3.0-13.0); NEUTROPHILS % (AUTO) 85.5 % (40.0-77.0); NUCLEATED RED BLOOD CELLS 0.1 % (0.0-0.19); PLATELET COUNT (AUTO) 143 K/uL (130-400); RED BLOOD CELL COUNT(AUTO) 2.56 MIL/uL (4.00-5.50); WHITE BLOOD COUNT (AUTO) 11.3 K/uL (4.8-10.8)
[2019-03-31] MEDS: FUROSEMIDE 10 MG/ML 2ML VIAL IV SCH ×3 (04:24→19:55)
[2019-03-31 04:45] LABS: CREATININE 0.7 mg/dL (0.5-1.5); MAGNESIUM 1.9 mg/dL (1.80-2.40); PHOSPHORUS 2.5 mg/dL (2.5-4.9); POTASSIUM 3.8 mmol/L (3.5-5.1)
[2019-03-31] MEDS: IPRATROPIUM/ALBUTEROL SULFATE 3 ML SOLUTION IH SCH ×4 (06:29→23:21)
[2019-03-31 07:57] LABS: ABG BASE EXCESS -6.7 mmol/L (-2.0-3.0); ABG OXYGEN SATURATION 97.5 % (95.0-99.0); ABG PCO2 34 mmHg (32-45)
[2019-03-31] MEDS: LEVOFLOXACIN 750 MG/D5W 150 ML 150 ML IV SCH (09:24)
[2019-03-31] MEDS: NEUTRA-PHOS PACKET 1 EACH PO SCH ×2 (09:25→19:52)
[2019-03-31] MEDS: FAMOTIDINE/PF 20 MG/2 ML VIAL IV SCH ×2 (09:25→19:52)
[2019-03-31] MEDS: CINACALCET HCL 30 MG TAB PO SCH (09:25)
[2019-03-31] MEDS: HYDROCODONE/ACETAMINOPHEN 5/325 MG TAB PO PRN (09:53)
[2019-03-31] MEDS: VANCOMYCIN 2 GM in SODIUM CHLORIDE 0.9% 500ML 500 ML IV SCH ×2 (09:53→19:52)
[2019-03-31] MEDS ORDERED: IOHEXOL-350 75 ML VIAL IV ONE (10:46)
--- NOTE | 2019-03-31 11:34 | NUR ---
10:45 PATIENT IS OUT OF THE ROOM FOR PROCEDURE. Addendum: 03/31/19 at 1135 by POONAM CASPER, PT PT Amended: Links added.
--- NOTE | 2019-03-31 16:56 | NUR ---
APPLIED NEW LINEN. PERFORMED WOUND CARE DRESSING CHANGE. APPLIED BILAT BETADINE CASTS ON HEELS, PACKED BACK WOUND.
[2019-04-01] VITALS (20 sets, daily range): BP systolic 89–136; BP diastolic 42–81
[2019-04-01] MEDS: FOSPHENYTOIN SODIUM 100 MG/2 ML VIAL IV SCH ×3 (02:05→19:38)
[2019-04-01] MEDS: LEVETIRACETAM 1,000 MG in SODIUM CHLORIDE 0.9% 100 ML IV SCH ×3 (02:07→19:38)
[2019-04-01] MEDS: CEFTAZIDIME PENTAHYDRATE 1 GM/VIAL IVP SCH ×3 (05:32→20:16)
[2019-04-01] MEDS: FUROSEMIDE 10 MG/ML 2ML VIAL IV SCH ×3 (05:32→20:21)
[2019-04-01] MEDS: IPRATROPIUM/ALBUTEROL SULFATE 3 ML SOLUTION IH SCH ×4 (06:50→23:38)
[2019-04-01] MEDS: FAMOTIDINE/PF 20 MG/2 ML VIAL IV SCH ×2 (09:03→20:21)
[2019-04-01] MEDS: LEVOFLOXACIN 750 MG/D5W 150 ML 150 ML IV SCH (09:03)
[2019-04-01] MEDS: CINACALCET HCL 30 MG TAB PO SCH (09:03)
[2019-04-01] MEDS: NEUTRA-PHOS PACKET 1 EACH PO SCH ×2 (09:06→20:22)
[2019-04-01] MEDS: HYDROCODONE/ACETAMINOPHEN 5/325 MG TAB PO PRN ×2 (09:13→14:12)
[2019-04-01] MEDS ORDERED: ALTEPLASE 2 MG/2 ML IVCATH SCH (10:15)
--- NOTE | 2019-04-01 21:00 | NUR ---
PT TRANSFERRED FROM ICU TO PCCU. AT BEDSIDE. NO DISTRESS NOTED. PT AA03. PERRLA. ON SPECIALTY BED. MUNOZ IN PLACE. PICC LINE PATENT TO ONE LUMEN. PENDING TO HAVE WOUND CARE TO BILATERAL HEELS. BETADINE CASTS.
[2019-04-02] MEDS: FOSPHENYTOIN SODIUM 100 MG/2 ML VIAL IV SCH ×3 (02:30→17:10)
[2019-04-02] MEDS: LEVETIRACETAM 1,000 MG in SODIUM CHLORIDE 0.9% 100 ML IV SCH ×3 (02:31→17:10)
[2019-04-02 03:57] LABS: BASOPHILS % (AUTO) 0.3 % (0.0-5.0); EOSINOPHILS % (AUTO) 0.8 % (0.0-8.0); HEMATOCRIT 24.5 % (36-48); LYMPHOCYTES % (AUTO) 9.1 % (21.0-51.0); MEAN CORPUSCULAR HEMOGLOBIN 29.1 pg (27.0-33.0); MEAN CORPUSCULAR HGB CONC 31.9 g/dL (32.0-36.0); MEAN CORPUSCULAR VOLUME 91.2 fL (79-99); MONOCYTES % (AUTO) 4.9 % (3.0-13.0); NEUTROPHILS % (AUTO) 84.9 % (40.0-77.0); NUCLEATED RED BLOOD CELLS 0.1 % (0.0-0.19); PLATELET COUNT (AUTO) 110 K/uL (130-400); RED BLOOD CELL COUNT(AUTO) 2.69 MIL/uL (4.00-5.50); RED CELL DISTRIBUTION WIDTH 15.6 % (11.0-15.5); WHITE BLOOD COUNT (AUTO) 12.3 K/uL (4.8-10.8)
[2019-04-02 04:20] LABS: CREATININE 0.9 mg/dL (0.5-1.5); POTASSIUM 3.5 mmol/L (3.5-5.1)
[2019-04-02] MEDS: CEFTAZIDIME PENTAHYDRATE 1 GM/VIAL IVP SCH ×3 (04:22→20:15)
[2019-04-02 04:27] VITALS: BP 110/59
--- NOTE | 2019-04-02 04:40 | NUR ---
PT REFUSED BEDBATH. STATED DID NOT WANT ONE AT THIS TIME.
[2019-04-02] MEDS: FUROSEMIDE 10 MG/ML 2ML VIAL IV SCH ×3 (05:04→20:15)
[2019-04-02] MEDS: POTASSIUM CHLORIDE 20MEQ/100ML 100 ML IV PRN (05:57)
[2019-04-02] MEDS: IPRATROPIUM/ALBUTEROL SULFATE 3 ML SOLUTION IH SCH ×4 (06:35→22:57)
[2019-04-02 07:43] VITALS: BP 101/48
--- NOTE | 2019-04-02 07:50 | NUR ---
DR. BAIRES IS IN TO SEE PATIENT. POSSIBLE. WOUND DEBRIDEMENT BY DR. LEIVA TOMORROW.
[2019-04-02] MEDS: NEUTRA-PHOS PACKET 1 EACH PO SCH ×2 (09:07→20:16)
[2019-04-02] MEDS: CINACALCET HCL 30 MG TAB PO SCH (09:07)
[2019-04-02] MEDS: FAMOTIDINE/PF 20 MG/2 ML VIAL IV SCH ×2 (09:07→20:15)
[2019-04-02] MEDS: LEVOFLOXACIN 750 MG/D5W 150 ML 150 ML IV SCH (09:28)
[2019-04-02 11:03] VITALS: BP 91/47
--- NOTE | 2019-04-02 12:23 | NUR ---
RD Follow up Note Pt sleeping at time of visit. Pt and RN states Pt sleeps continuously so unable to assess PO tolerance. Pt states Pt able to drink sip of beverage with no N/V, however Pt not awake long enough to finish drink. RN report Pt with lack of sleep last d/t worried about daughter who is also admitted, therefore Pt sleeping today. RD to continue to monitor. RD rec to add Sean BID/60mL Promod BID for wound healing support. Also rec to add Vitamin C, Zinc for wound healing support. Also rec to add Stool softener/laxative as LBM noted 03/27/19. RD to continue to monitor. Please notify RD as additional nutrition concerns arise. Thank you. Addendum: 04/02/19 at [address] Amended: Links added.
--- NOTE | 2019-04-02 13:50 | NUR ---
WOUND VAC CANISTER CHANGED.
[2019-04-02 16:00] VITALS: BP 97/58
[2019-04-02 19:28] VITALS: BP 101/75
[2019-04-02 23:00] VITALS: BP 99/68
[2019-04-03] VITALS (10 sets, daily range): BP systolic 88–138; BP diastolic 42–89
[2019-04-03] MEDS: FOSPHENYTOIN SODIUM 100 MG/2 ML VIAL IV SCH ×3 (01:58→17:54)
[2019-04-03] MEDS: LEVETIRACETAM 1,000 MG in SODIUM CHLORIDE 0.9% 100 ML IV SCH ×3 (02:00→17:54)
[2019-04-03 03:44] LABS: BASOPHILS % (AUTO) 0.2 % (0.0-5.0); EOSINOPHILS % (AUTO) 0.6 % (0.0-8.0); HEMATOCRIT 24.6 % (36-48); LYMPHOCYTES % (AUTO) 8.5 % (21.0-51.0); MEAN CORPUSCULAR HEMOGLOBIN 29.9 pg (27.0-33.0); MEAN CORPUSCULAR HGB CONC 32.7 g/dL (32.0-36.0); MEAN CORPUSCULAR VOLUME 91.5 fL (79-99); MONOCYTES % (AUTO) 5.7 % (3.0-13.0); NUCLEATED RED BLOOD CELLS 0.1 % (0.0-0.19); PLATELET COUNT (AUTO) 118 K/uL (130-400); RED BLOOD CELL COUNT(AUTO) 2.68 MIL/uL (4.00-5.50); RED CELL DISTRIBUTION WIDTH 15.8 % (11.0-15.5); WHITE BLOOD COUNT (AUTO) 13.7 K/uL (4.8-10.8)
[2019-04-03 03:58] LABS: CREATININE 0.9 mg/dL (0.5-1.5); MAGNESIUM 1.4 mg/dL (1.80-2.40); POTASSIUM 3.7 mmol/L (3.5-5.1)
[2019-04-03] MEDS: FUROSEMIDE 10 MG/ML 2ML VIAL IV SCH ×3 (04:03→21:15)
[2019-04-03] MEDS: CEFTAZIDIME PENTAHYDRATE 1 GM/VIAL IVP SCH ×3 (04:04→19:24)
[2019-04-03] MEDS ORDERED: HYDROMORPHONE 1 MG/1 ML AMP ONE (06:31)
[2019-04-03] MEDS: IPRATROPIUM/ALBUTEROL SULFATE 3 ML SOLUTION IH SCH ×4 (06:50→23:50)
[2019-04-03] MEDS: LEVOFLOXACIN 750 MG/D5W 150 ML 150 ML IV SCH (08:19)
[2019-04-03] MEDS: FAMOTIDINE/PF 20 MG/2 ML VIAL IV SCH ×2 (08:19→21:00)
--- NOTE | 2019-04-03 08:45 | NUR ---
SX CLEARANCE PT CLEARED BY DR CROWE TO HAVE SX BY DR LEIVA TODAY. DR LEIVA TO BE NOTIFIED.
[2019-04-03] MEDS: NEUTRA-PHOS PACKET 1 EACH PO SCH ×2 (09:00→21:00)
[2019-04-03] MEDS: CINACALCET HCL 30 MG TAB PO SCH (09:00)
--- NOTE | 2019-04-03 09:19 | NUR ---
MD NOTIFICATION CALL BACK RECEIVED FROM DR LEIVA. UPDATED ON CLEARANCE FROM DR CROWE FOR SX TODAY. ORDER RECEIVED FOR WOUND WASHOUT & WOUND VAC EXCHANGE TODAY. OR TO BE NOTIFIED.
[2019-04-03] MEDS: VANCOMYCIN 2 GM in SODIUM CHLORIDE 0.9% 500ML 500 ML IV SCH ×2 (09:23→21:00)
--- NOTE | 2019-04-03 19:05 | NUR ---
Received report pt is going for surgery and after the procedure pt. is going to be in ICU.
--- NOTE | 2019-04-03 19:28 | NUR ---
Pt. taken to surgery via bed accompanied by staff.Pt. alert and oriented,denies pain or any discomfort .Scheduled antibiotic given.
[2019-04-03] MEDS ORDERED: GLYCOPYRROLATE 1 MG/5 ML SYRINGE ONE (20:03)
[2019-04-03] MEDS ORDERED: NEOSTIGMINE 5MG/5ML SYR IV ONE (20:03)
[2019-04-03] MEDS ORDERED: SUCCINYLCHOLINE 200MG/10ML SYR ONE (20:03)
[2019-04-03] MEDS ORDERED: LIDOCAINE PF 2% 5ML ABBOJECT ONE (20:03)
[2019-04-03] MEDS ORDERED: ONDANSETRON HCL 4 MG/2 ML VIAL ONE (20:03)
[2019-04-03] MEDS ORDERED: DEXAMETHASONE SOD PHOSPHATE 10MG/ML 1ML VIAL ONE (20:03)
[2019-04-03] MEDS ORDERED: PROPOFOL 10 MG/ML 20ML VIAL IV ONE (20:03)
[2019-04-03] MEDS ORDERED: FENTANYL CITRATE PF 50 MCG/1 ML 2ML VIAL ONE (20:04)
[2019-04-03] MEDS ORDERED: ROCURONIUM 10MG/1ML SYR 10 MG/ML ML ONE ×2 (20:04→20:58)
[2019-04-03] MEDS ORDERED: EPHEDRINE SULFATE 50 MG/ML AMPULE ONE (20:28)
[2019-04-03] MEDS ORDERED: SODIUM BICARB 50MEQ 50ML VIAL ONE ×2 (21:06→23:45)
[2019-04-03] MEDS ORDERED: NOREPINEPHRINE 4MG/NS 250ML 250 ML IV SCH (22:00)
[2019-04-03] MEDS ORDERED: PROPOFOL 1000 MG/100 ML IV PRN (22:00)
--- NOTE | 2019-04-03 22:00 | NUR ---
RECEIVED FROM SURGERY WITH ORAL ETT INPLACE AND PLACED ON VENT WITH ORDERED SETTINGS BY RT. LEVOPHED DRIP INFUSING FROM OR AT 10MCG/MIN. BBS DIMINISHED. FC TO BSD. WOUND VAC IN PLACE WITH ORDERED SETTINGS.
[2019-04-03] MEDS ORDERED: PROPOFOL 1000 MG/100 ML 100 ML IV PRN (22:15)
--- NOTE | 2019-04-03 22:25 | NUR ---
ETT SHOWN IN RT MAIN STEM PER POST OP X RAY. RT HERE AND REPOSITIONED FROM 25 TO 23 LIP LINE AND SECURED. REPEAT CXR DONE. TUBE AT CORRECT PLACEMENT NOW WITH SATS 100%. PROPOFOL DRIP INFUSING FOR VENT CONTROL.
--- NOTE | 2019-04-03 22:50 | NUR ---
VISITOR AT BEDSIDE AND QUESTIONS ANSWERED.
--- NOTE | 2019-04-03 23:00 | NUR ---
INSTRUMENT INSTALLER CALL ABG RESULTS CALLED TO WESLEY POSEY AND ORDERS RECEIVED.
[2019-04-03 23:17] LABS: ABG BASE EXCESS -8.1 mmol/L (-2.0-3.0); ABG HCO3 16.4 mmol/L (21.0-28.0); ABG OXYGEN SATURATION 99.6 % (95.0-99.0); ABG PCO2 32 mmHg (32-45)
[2019-04-03] MEDS ORDERED: LACTATED RINGERS 1000ML 2,000 ML IV ONE (23:45)
[2019-04-04] VITALS (22 sets, daily range): BP systolic 90–154; BP diastolic 38–90
[2019-04-04] MEDS ORDERED: LACTATED RINGERS 1000ML 1,000 ML IV ONE (00:15)
[2019-04-04] MEDS ORDERED: SODIUM BICARB 50MEQ 50ML VIAL IV ONE (00:15)
[2019-04-04] MEDS ORDERED: LACTATED RINGERS 1000ML 2,000 ML IV ONE (00:28)
[2019-04-04] MEDS: LACTATED RINGERS 1000ML 1,000 ML IV SCH ×2 (00:59→14:09)
[2019-04-04] MEDS: LEVETIRACETAM 1,000 MG in SODIUM CHLORIDE 0.9% 100 ML IV SCH ×3 (02:22→18:25)
[2019-04-04] MEDS: FOSPHENYTOIN SODIUM 100 MG/2 ML VIAL IV SCH ×3 (02:22→18:26)
[2019-04-04] MEDS: CEFTAZIDIME PENTAHYDRATE 1 GM/VIAL IVP SCH ×3 (04:42→19:40)
[2019-04-04] MEDS: FUROSEMIDE 10 MG/ML 2ML VIAL IV SCH ×3 (04:43→20:40)
[2019-04-04 05:42] LABS: POTASSIUM 3.4 mmol/L (3.5-5.1)
[2019-04-04 05:58] LABS: BASOPHILS % (AUTO) 0.1 % (0.0-5.0); EOSINOPHILS % (AUTO) 0.1 % (0.0-8.0); HEMATOCRIT 27.7 % (36-48); LYMPHOCYTES % (AUTO) 5.2 % (21.0-51.0); MEAN CORPUSCULAR HEMOGLOBIN 29.2 pg (27.0-33.0); MEAN CORPUSCULAR HGB CONC 31.9 g/dL (32.0-36.0); MEAN CORPUSCULAR VOLUME 91.6 fL (79-99); MONOCYTES % (AUTO) 4.4 % (3.0-13.0); NEUTROPHILS % (AUTO) 90.2 % (40.0-77.0); NUCLEATED RED BLOOD CELLS 0.2 % (0.0-0.19); PLATELET COUNT (AUTO) 202 K/uL (130-400); RED BLOOD CELL COUNT(AUTO) 3.02 MIL/uL (4.00-5.50); WHITE BLOOD COUNT (AUTO) 29.8 K/uL (4.8-10.8)
[2019-04-04 07:46] LABS: ABG BASE EXCESS -7.9 mmol/L (-2.0-3.0); ABG HCO3 15.9 mmol/L (21.0-28.0); ABG OXYGEN SATURATION 99.1 % (95.0-99.0); ABG PCO2 29 mmHg (32-45)
[2019-04-04] MEDS: FAMOTIDINE/PF 20 MG/2 ML VIAL IV SCH ×2 (10:20→20:40)
[2019-04-04] MEDS: LEVOFLOXACIN 750 MG/D5W 150 ML 150 ML IV SCH (10:20)
[2019-04-04] MEDS: CINACALCET HCL 30 MG TAB PO SCH (11:28)
[2019-04-04] MEDS: NEUTRA-PHOS PACKET 1 EACH PO SCH ×2 (11:29→20:41)
--- NOTE | 2019-04-04 11:30 | NUR ---
NURSING CARE ASSUMED REPORT RECEIVED FROM JAMES LE. ALL NURSING CARE ASSUMED AT THIS TIME
[2019-04-04] MEDS: IPRATROPIUM/ALBUTEROL SULFATE 3 ML SOLUTION IH SCH ×3 (11:34→23:20)
--- NOTE | 2019-04-04 12:40 | NUR ---
RD Follow up note Pt s/p debridement. Pt currently NPO. When medically feasible, rec to advance diet as tolerated. Once diet advanced, rec to add nutritional supplement Ensure Clear QD and Sean BID for wound healing support. Pt LBM 04/03/19. Pt monitored labs: K 3.4, CO2 19, BUN 21, Ca 10.7, Mg 1.4, Alb 1.4. RD to continue to monitor. Please notify RD as additional nutrition concerns arise. Thank you. Addendum: 04/04/19 at [address] Amended: Links added.
[2019-04-04] MEDS: VANCOMYCIN 2 GM in SODIUM CHLORIDE 0.9% 500ML 500 ML IV SCH ×2 (15:15→21:00)
[2019-04-04] MEDS: HYDROCODONE/ACETAMINOPHEN 5/325 MG TAB PO PRN (19:41)
[2019-04-05] VITALS (21 sets, daily range): BP systolic 90–164; BP diastolic 39–71
[2019-04-05] MEDS: FOSPHENYTOIN SODIUM 100 MG/2 ML VIAL IV SCH ×3 (02:17→18:30)
[2019-04-05] MEDS: LACTATED RINGERS 1000ML 1,000 ML IV SCH (02:18)
[2019-04-05] MEDS: LEVETIRACETAM 1,000 MG in SODIUM CHLORIDE 0.9% 100 ML IV SCH ×3 (02:18→18:30)
[2019-04-05 02:47] LABS: BASOPHILS % (AUTO) 0.3 % (0.0-5.0); EOSINOPHILS % (AUTO) 0.2 % (0.0-8.0); HEMATOCRIT 22.9 % (36-48); LYMPHOCYTES % (AUTO) 7.6 % (21.0-51.0); MEAN CORPUSCULAR HEMOGLOBIN 29.4 pg (27.0-33.0); MEAN CORPUSCULAR HGB CONC 32.5 g/dL (32.0-36.0); MEAN CORPUSCULAR VOLUME 90.6 fL (79-99); MONOCYTES % (AUTO) 5.8 % (3.0-13.0); NEUTROPHILS % (AUTO) 86.1 % (40.0-77.0); NUCLEATED RED BLOOD CELLS 0.2 % (0.0-0.19); PLATELET COUNT (AUTO) 50 K/uL (130-400); RED BLOOD CELL COUNT(AUTO) 2.53 MIL/uL (4.00-5.50); RED CELL DISTRIBUTION WIDTH 15.6 % (11.0-15.5); WHITE BLOOD COUNT (AUTO) 14.4 K/uL (4.8-10.8)
[2019-04-05 03:07] LABS: MAGNESIUM 1.3 mg/dL (1.80-2.40); POTASSIUM 3.3 mmol/L (3.5-5.1)
[2019-04-05] MEDS: CEFTAZIDIME PENTAHYDRATE 1 GM/VIAL IVP SCH ×3 (04:33→20:40)
[2019-04-05] MEDS: FUROSEMIDE 10 MG/ML 2ML VIAL IV SCH (04:33)
[2019-04-05] MEDS: MAGNESIUM 2GM PREMIX 50ML 50 ML IV PRN (04:34)
[2019-04-05] MEDS: POTASSIUM CHLORIDE 20MEQ/100ML 100 ML IV PRN ×3 (04:34→06:42)
[2019-04-05] MEDS: IPRATROPIUM/ALBUTEROL SULFATE 3 ML SOLUTION IH SCH ×4 (06:16→23:31)
[2019-04-05] MEDS: VANCOMYCIN 2 GM in SODIUM CHLORIDE 0.9% 500ML 500 ML IV SCH ×2 (08:36→21:00)
[2019-04-05] MEDS ORDERED: RENAL DOSE IV SCH (08:45)
[2019-04-05] MEDS: NEUTRA-PHOS PACKET 1 EACH PO SCH ×2 (10:29→20:40)
[2019-04-05] MEDS: CINACALCET HCL 30 MG TAB PO SCH (10:30)
[2019-04-05] MEDS: FAMOTIDINE/PF 20 MG/2 ML VIAL IV SCH ×2 (10:30→20:40)
[2019-04-05] MEDS: HYDROCODONE/ACETAMINOPHEN 5/325 MG TAB PO PRN ×2 (12:11→22:10)
[2019-04-05] MEDS: FUROSEMIDE 10 MG/ML 4ML VIAL IV SCH (16:35)
[2019-04-05] MEDS ORDERED: EPOETIN ALFA 10,000 UNIT/ML VIAL SQ SCH (18:30)
[2019-04-05] MEDS: IRON SUCROSE COMPLEX 100 MG in SODIUM CHLORIDE 0.9% 50 ML IV SCH (18:30)
[2019-04-06] VITALS (7 sets, daily range): BP systolic 82–138; BP diastolic 36–71
[2019-04-06] MEDS: LEVETIRACETAM 1,000 MG in SODIUM CHLORIDE 0.9% 100 ML IV SCH ×3 (02:30→18:16)
[2019-04-06] MEDS: FUROSEMIDE 10 MG/ML 4ML VIAL IV SCH ×2 (03:42→14:36)
[2019-04-06] MEDS: CEFTAZIDIME PENTAHYDRATE 1 GM/VIAL IVP SCH (03:42)
[2019-04-06] MEDS: FOSPHENYTOIN SODIUM 100 MG/2 ML VIAL IV SCH ×3 (03:49→18:17)
[2019-04-06 04:17] LABS: BASOPHILS % (AUTO) 0.1 % (0.0-5.0); EOSINOPHILS % (AUTO) 0.6 % (0.0-8.0); HEMATOCRIT 23.5 % (36-48); LYMPHOCYTES % (AUTO) 9.4 % (21.0-51.0); MEAN CORPUSCULAR HEMOGLOBIN 28.7 pg (27.0-33.0); MEAN CORPUSCULAR HGB CONC 31.1 g/dL (32.0-36.0); MEAN CORPUSCULAR VOLUME 92.2 fL (79-99); MONOCYTES % (AUTO) 4.9 % (3.0-13.0); NUCLEATED RED BLOOD CELLS 0.2 % (0.0-0.19); PLATELET COUNT (AUTO) 32 K/uL (130-400); RED BLOOD CELL COUNT(AUTO) 2.55 MIL/uL (4.00-5.50); WHITE BLOOD COUNT (AUTO) 10.6 K/uL (4.8-10.8)
[2019-04-06 04:19] LABS: POTASSIUM 3.9 mmol/L (3.5-5.1)
[2019-04-06] MEDS: IPRATROPIUM/ALBUTEROL SULFATE 3 ML SOLUTION IH SCH ×4 (06:25→23:48)
[2019-04-06] MEDS: FAMOTIDINE/PF 20 MG/2 ML VIAL IV SCH ×2 (07:31→21:20)
[2019-04-06] MEDS: IRON SUCROSE COMPLEX 100 MG in SODIUM CHLORIDE 0.9% 50 ML IV SCH (08:01)
[2019-04-06] MEDS: VANCOMYCIN 2 GM in SODIUM CHLORIDE 0.9% 500ML 500 ML IV SCH ×2 (08:35→21:00)
[2019-04-06] MEDS: CINACALCET HCL 30 MG TAB PO SCH (08:39)
[2019-04-06] MEDS: HYDROCODONE/ACETAMINOPHEN 5/325 MG TAB PO PRN ×3 (08:40→21:25)
[2019-04-06] MEDS: NEUTRA-PHOS PACKET 1 EACH PO SCH ×2 (08:42→21:21)
[2019-04-06] MEDS ORDERED: PHARMACY COMMUNICATION MISC SCH (12:00)
[2019-04-06] MEDS ORDERED: RENAL DOSE IV SCH (12:00)
[2019-04-06] MEDS: MEROPENEM 500 MG VIAL IVP SCH ×2 (12:45→21:31)
--- NOTE | 2019-04-06 20:30 | NUR ---
Quan the certified juvenile probation officer unable to draw vanco trough. said he would send retail shift manager to try at 10PM
[2019-04-07 01:20] VITALS: BP 115/71
[2019-04-07] MEDS: FUROSEMIDE 10 MG/ML 4ML VIAL IV SCH ×2 (02:36→16:54)
[2019-04-07] MEDS: LEVETIRACETAM 1,000 MG in SODIUM CHLORIDE 0.9% 100 ML IV SCH ×2 (02:36→10:12)
[2019-04-07] MEDS: FOSPHENYTOIN SODIUM 100 MG/2 ML VIAL IV SCH ×2 (02:37→10:12)
[2019-04-07] MEDS: MEROPENEM 500 MG VIAL IVP SCH ×2 (04:13→13:50)
[2019-04-07 04:24] LABS: CREATININE 0.9 mg/dL (0.5-1.5); MAGNESIUM 1.7 mg/dL (1.80-2.40); POTASSIUM 4.5 mmol/L (3.5-5.1)
[2019-04-07 04:49] LABS: BASOPHILS % (AUTO) 0.2 % (0.0-5.0); EOSINOPHILS % (AUTO) 0.5 % (0.0-8.0); HEMATOCRIT 23.4 % (36-48); LYMPHOCYTES % (AUTO) 8.1 % (21.0-51.0); MEAN CORPUSCULAR HEMOGLOBIN 29.8 pg (27.0-33.0); MEAN CORPUSCULAR VOLUME 90.5 fL (79-99); NEUTROPHILS % (AUTO) 86.2 % (40.0-77.0); NUCLEATED RED BLOOD CELLS 0.6 % (0.0-0.19); PLATELET COUNT (AUTO) 169 K/uL (130-400); RED BLOOD CELL COUNT(AUTO) 2.58 MIL/uL (4.00-5.50); RED CELL DISTRIBUTION WIDTH 15.5 % (11.0-15.5)
[2019-04-07 05:50] VITALS: BP 121/82
[2019-04-07] MEDS: IPRATROPIUM/ALBUTEROL SULFATE 3 ML SOLUTION IH SCH ×2 (06:31→11:27)
[2019-04-07] MEDS: MAGNESIUM 2GM PREMIX 50ML 50 ML IV PRN (07:28)
[2019-04-07 07:49] VITALS: BP 101/54
[2019-04-07] MEDS: CINACALCET HCL 30 MG TAB PO SCH (08:08)
[2019-04-07] MEDS: NEUTRA-PHOS PACKET 1 EACH PO SCH (08:09)
[2019-04-07] MEDS: IRON SUCROSE COMPLEX 100 MG in SODIUM CHLORIDE 0.9% 50 ML IV SCH (08:09)
[2019-04-07] MEDS: FAMOTIDINE/PF 20 MG/2 ML VIAL IV SCH (08:09)
[2019-04-07] MEDS: HYDROCODONE/ACETAMINOPHEN 5/325 MG TAB PO PRN (08:16)
[2019-04-07] MEDS: VANCOMYCIN 2 GM in SODIUM CHLORIDE 0.9% 500ML 500 ML IV SCH (10:12)
[2019-04-07 11:11] LABS: ABG BASE EXCESS -7.9 mmol/L (-2.0-3.0); ABG OXYGEN SATURATION 98.4 % (95.0-99.0); ABG PCO2 34 mmHg (32-45)
[2019-04-07 12:00] VITALS: BP 118/56
--- NOTE | 2019-04-07 14:10 | NUR ---
RD Follow up Pt tolerating Heart Healthy diet with no report of GI distress. Pt reports decreased appetite today but will continue to try and eat. RD recommend Sean BID, 60mL ProMod, Vitamin C, Zinc for wound healing support. Pt agrees to Sean and protein supplementation. Pt with Rt buttock/Mid back/Bilateral heel ulcers. Na 134, CO2 18, BUN 24, Ca 10.3, Mg 1.70. RD to continue to monitor. Please notify RD as additional nutrition concerns arise. Thank you. Addendum: 04/07/19 at [address] Amended: Links added.
[2019-04-07 15:52] VITALS: BP 107/54
--- NOTE | 2019-04-07 17:02 | NUR ---
[facility]CHARGE [facility] CALLED TO REQUEST TRANSPORT TO [facility].
--- NOTE | 2019-04-07 17:15 | NUR ---
DISCHARGE TELEPHONE REPORT GIVEN TO ISRRAEL RAMIREZ @ [facility].
--- NOTE | 2019-04-07 17:45 | NUR ---
DISCHARGE EMS HERE TO TRANSFER PT TO [facility].
--- NOTE | 2019-04-10 07:58 | NUR ---
DC PLAN PATIENT ACCEPTED TO [facility]. SENT SUPERIOR FORM FOR AMBULANCE. SPOKE TO [facility] AND SPOUSE. OKAY WITH TRANSPORT EVEN IF THEY MIGHT GET A BILL. PATIENT OBESE WITH 02 AND WOUND VACS. MOT AND MED REC IN CHART. Addendum: 04/10/19 at 0759 by ALDO WOLFF RN CM Amended: Links added.
== END 2019-04-07 17:44 | DRG 710 ==
LOC: EDH 12:49 → EDHIP 18:34 → 3BH 20:27 → 2CH 03-28 17:51 → 2DH 04-01 21:26 → 2BH 04-03 20:01 → 2DH 04-05 19:02
PROVIDERS: ADMIT Internal Medicine; ATTEND Internal Medicine
PROC: 0BH17EZ Insertion of Endotracheal Airway into Trachea, Via Natural or Artificial Opening (ICD-10-PCS; 2019-03-28)
PROC: 0KBN0ZZ Excision of Right Hip Muscle, Open Approach (ICD-10-PCS; principal; 2019-03-28 15:00)
PROC: 30233N1 Transfusion of Nonautologous Red Blood Cells into Peripheral Vein, Percutaneous Approach (ICD-10-PCS; 2019-03-28 15:00)
PROC: 5A1935Z Respiratory Ventilation, Less than 24 Consecutive Hours (ICD-10-PCS; 2019-03-28 15:00)
PROC: 5A09357 Assistance with Respiratory Ventilation, Less than 24 Consecutive Hours, Continuous Positive Airway Pressure (ICD-10-PCS; 2019-03-30)
PROC: 02HV33Z Insertion of Infusion Device into Superior Vena Cava, Percutaneous Approach (ICD-10-PCS; 2019-03-30)
PROC: 5A1935Z Respiratory Ventilation, Less than 24 Consecutive Hours (ICD-10-PCS; 2019-04-03)
DX: A41.9 Sepsis, unspecified organism (principal); G93.6 Cerebral edema; I61.1 Nontraumatic intracerebral hemorrhage in hemisphere, cortical; J96.21 Acute and chronic respiratory failure with hypoxia; E43 Unspecified severe protein-calorie malnutrition; M72.6 Necrotizing fasciitis; D69.6 Thrombocytopenia, unspecified; E83.51 Hypocalcemia; L89.103 Pressure ulcer of unspecified part of back, stage 3; L89.314 Pressure ulcer of right buttock, stage 4; L89.159 Pressure ulcer of sacral region, unspecified stage; I62.9 Nontraumatic intracranial hemorrhage, unspecified; E87.8 Other disorders of electrolyte and fluid balance, not elsewhere classified; E83.52 Hypercalcemia; R65.20 Severe sepsis without septic shock; N19 Unspecified kidney failure; E66.2 Morbid (severe) obesity with alveolar hypoventilation; N39.0 Urinary tract infection, site not specified; L89.610 Pressure ulcer of right heel, unstageable; L89.620 Pressure ulcer of left heel, unstageable; E87.6 Hypokalemia; R91.8 Other nonspecific abnormal finding of lung field; I89.0 Lymphedema, not elsewhere classified; D64.9 Anemia, unspecified; E86.0 Dehydration; E05.90 Thyrotoxicosis, unspecified without thyrotoxic crisis or storm; E11.9 Type 2 diabetes mellitus without complications; G40.909 Epilepsy, unspecified, not intractable, without status epilepticus; H55.00 Unspecified nystagmus; I10 Essential (primary) hypertension; J96.22 Acute and chronic respiratory failure with hypercapnia; E87.1 Hypo-osmolality and hyponatremia; L03.90 Cellulitis, unspecified; Z68.45 Body mass index [BMI] 70 or greater, adult; Z74.01 Bed confinement status; Z88.0 Allergy status to penicillin; Z86.73 Personal history of transient ischemic attack (TIA), and cerebral infarction without residual deficits; Z87.01 Personal history of pneumonia (recurrent); Z83.3 Family history of diabetes mellitus; Z82.49 Family history of ischemic heart disease and other diseases of the circulatory system; Z84.89 Family history of other specified conditions
CPT/HCPCS: 36415; 36430; 36600; 70450; 70496; 71045; 80048; 80053; 80202; 81001; 82306; 82330; 82340; 82435; 82550; 82803; 82947; 82948; 83540; 83550; 83605; 83735; 83874; 83880; 83970; 84100; 84132; 84295; 84443; 84484; 85018; 85025; 85027; 85610; 85730; 86850; 86900; 86901; 86922; 87040; 87077; 87088; 87186; 88305; 93005; 93971; 94002; 94003; 94150; 94640; 94660; 94664; 97039; C1894; G0378; J0330; J0713; J0885; J1100; J1170; J1644; J1650; J1756; J1940; J1953; J1956; J2001; J2060; J2185; J2250; J2370; J2405; J2704; J2710; J2997; J3010; J3370; J3475; J3480; J3490; J7030; J7040; J7120; P9016; Q2009; Q9967